=== PATIENT | female | born 1995 | race African-American/Black ===

== ENCOUNTER 2017-05-14 19:49 | Emergency (ER) | payer BC, SELFPAY ==
[2017-05-14 20:03] LABS: Bilirubin Negative (Negative); Blood, Urine Trace (Negative); Glucose, Urine (Dipstick) Negative (Negative); Ketone, Urine Negative (Negative); Nitrite Negative (Negative); Protein, Urine (Dipstick) Negative (Neg-Trace); Urobilinogen 0.2 mg/dL (0.2-1.0)
[2017-05-14 20:10] LABS: Bacteria/HPF Rare-Few HPF (None Seen); Hyaline Casts/LPF 0-3 HYALINE CAST LPF (0-3 Hyaline); Squamous Epithelial 0-3 HPF (0-3); WBC/HPF 0-3 HPF (0-3)
[2017-05-14 20:28] LABS: #Eosinphils 0.1 thou/uL (0.0-0.7); #Lymphocytes 1.7 thou/uL (1.20-3.40); #Monocytes 0.4 thou/uL (0.11-0.59); #Neutrophils 2.8 thou/uL (1.40-6.50); %Basophils 0.9 % (0.0-1.0); %Eosinophils 2.4 % (0.0-10.0); %Lymphocytes 33.4 % (28.0-48.0); %Monocytes 8.2 % (0.0-4.0); Hematocrit 43.2 % (36.0-47.0); Mean Platelet Volume 6.6 fL (7.4-10.4); Red Blood Cell (RBC) Count 4.05 mill/uL (4.00-5.20); White Blood Cell (WBC) Count 5.1 thou/uL (4.8-10.8)
[2017-05-14 20:51] LABS: ALT (SGPT) 11 U/L (8-55); AST (SGOT) 13 U/L (5-34); Alkaline Phosphatase 58 U/L (40-150); Anion Gap 11 mmol/L (10-20); BUN (Urea Nitrogen) 11 mg/dL (7.0-18.7); Bilirubin, Total Less than 0.2 mg/dL (0.2-1.2); Calc. Creatinine Clearance 0 mL/min (70-130); Carbon Dioxide 25 mmol/L (22-29); Chloride 109 mmol/L (98-107); Estimated GFR-MDRD Greater than 90; Globulin 2.6 g/dL (2.4-3.5); Protein, Total 6.1 g/dL (6.0-8.3)
[2017-05-14] MEDS ORDERED: Meclizine HCl 25 MG TAB ONE (21:02)
[2017-05-14] MEDS ORDERED: Metoclopramide HCl 10 MG/2 ML VIAL ONE (21:04)
--- NOTE | 2017-05-14 21:04 | CT ---
NONCONTRAST CT OF THE BRAIN 05/14/17 INDICATION: History of vertigo and dizziness. Patient is also complaining of double vision that occurred yesterd ay. Patient is having headaches. COMPARISON: None. FINDINGS: No acute infarct, hemorrhage or hydrocephalus is present. The septum pellucidum and third ventricle are midline. Skull and extracranial soft tissues are within normal limits. IMPRESSION: No acute intracranial abnormality. POS: NATALI
[2017-05-14] MEDS ORDERED: Metoclopramide HCl 10 MG TAB PO SCH (21:15)
== END 2017-05-14 22:28 | disposition home or self-care (01) ==
LOC: ERS 19:49
DX: H81.10 Benign paroxysmal vertigo, unspecified ear (principal); F17.210 Nicotine dependence, cigarettes, uncomplicated
CPT/HCPCS: 36415; 70450; 80053; 81003; 81015; 81025; 85025; 93005; J2765

== ENCOUNTER 2017-06-02 07:52 | Emergency (ER) | payer SELFPAY | END 2017-06-02 09:00 | disposition home or self-care (01) | LOC: ERS 07:52 | DX: Z02.89 Encounter for other administrative examinations (principal); F17.210 Nicotine dependence, cigarettes, uncomplicated | CPT/HCPCS: 99282 ==

== ENCOUNTER 2017-07-26 21:06 | Emergency (ER) | payer SELFPAY, OTHER | END 2017-07-26 23:03 | disposition home or self-care (01) | LOC: ERS 21:06 | DX: N94.6 Dysmenorrhea, unspecified (principal); F17.210 Nicotine dependence, cigarettes, uncomplicated; J45.909 Unspecified asthma, uncomplicated | CPT/HCPCS: 99406 ==